=== PATIENT | male | born 1970 | race Caucasian/White ===

== ENCOUNTER → 2018-10-22 | Day surgery (SDC) | payer BC ==
[~2018-10-22] MED LIST: Lactated Ringers 1,000 ML IV SCH; Propofol 200 MG/20 ML SDV IV ONE
--- NOTE | 2018-10-22 15:06 | OR ---
DATE OF OPERATION: 10/22/2018 PREOPERATIVE DIAGNOSIS: 1. SCREENING COLONOSCOPY. 2. CHRONIC GASTROESOPHAGEAL REFLUX DISEASE WITH DYSPHAGIA. POSTOPERATIVE DIAGNOSIS: 1. SCREENING COLONOSCOPY. 2. CHRONIC GASTROESOPHAGEAL REFLUX DISEASE WITH DYSPHAGIA. SURGEON: Barry Greene MD PROCEDURE: 1. FULL-LENGTH EGD WITH BIOPSIES X3, BRYSON. 2. FULL-LENGTH COLONOSCOPY WITH SNARE POLYPECTOMY X3. 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 COMPLICATIONS: None. SPECIMEN: 1. Antral biopsy x2. 2. Antral BRYSON. 3. Distal esophageal biopsy x1. 4. Villous adenomas x3, left colon. FINDINGS: 1. Full-length EGD. 2. Antral gastritis, chronic. 3. Mild hiatal hernia with spontaneous GERD with potential Drummond's esophagus. 4. Full-length colonoscopy. 5. Villous adenomas x3, left colon. RECOMMENDATIONS: All 3 of these villous polyps were greater than half a cm. Recommend a followup colonoscopy in the next 2 years. The patient could consider a consultation with Dr. Goins for his persistent reflux associated with his hiatal hernia. INDICATIONS: The patient has persistent chronic reflux, but is not on medical therapy. He has never had a prior EGD. Sebastian Cha sent him for that and a screening colonoscopy. DESCRIPTION OF PROCEDURE: The patient was prepped and draped, placed in the left lateral decubitus position. A lubricated Olympus gastroscope was inserted over bit and advanced to cricopharyngeus area and easily intubated into the esophagus. Esophageal lining was benign most of its course. At its most distal portion, the patient had a [id number] sized hiatal hernia with spontaneous GERD. There were 2 or 3 areas that might represent short-segment Drummond's. We did a biopsy of those. The scope was then advanced into the stomach, through the pylorus, into the second portion of duodenum. This and the duodenal bulb were benign. The scope was brought back into the stomach and retroflexed. The upper fundus and cardia were benign. Upon straightening, the rest of the fundus was unremarkable. The patient's antrum has changes of chronic gastritis without any acute ulcerations or erosions. Two biopsies were taken along with a CLOtest. The scope was then brought back up to the distal esophagus, reevaluated. Resolution of bleeding was spontaneous. There were no signs of any stricturing or ulceration. The scope was removed and patient was then lied flat. The lubricated Olympus colonoscope was then inserted and easily advanced to the cecum. Direct visualization of the ileocecal valve and appendiceal orifice were accomplished. The bowel prep was fine. Upon withdrawal of the scope, the patient's cecum, ascending and transverse colon were completely benign. Just past the splenic flexure, the patient had a flat villous lesion, approximately three-fourth of a cm in size and was removed with a snare and suctioned into polyp trap. 1. We had to remove it in 2 separate pieces. Just in the distal descending colon, the patient had a 2nd villous adenoma approximately half a cm in size, removed it in its entirety and suctioned into polyp trap. 2. In the mid sigmoid colon, the patient had a 3rd villous adenoma, again approximately half a cm in size, removed with a snare and suctioned into polyp trap. 3. The rest of the sigmoid and rectosigmoid junction were benign. The rectal vault was unremarkable. Retroflexion of scope in the rectum showed no perianal lesions. Air was then suctioned, scope removed without complication. SCARLET/ADRIANA /[id number]
== END ==
LOC: CC.SDS 11:20
PROVIDERS: ATTEND Family Medicine
DX: Z12.11 Encounter for screening for malignant neoplasm of colon (principal); D12.4 Benign neoplasm of descending colon; D12.5 Benign neoplasm of sigmoid colon; D12.3 Benign neoplasm of transverse colon; K22.70 Barrett's esophagus without dysplasia; K29.50 Unspecified chronic gastritis without bleeding; K44.9 Diaphragmatic hernia without obstruction or gangrene; K21.9 Gastro-esophageal reflux disease without esophagitis; E78.5 Hyperlipidemia, unspecified; J45.909 Unspecified asthma, uncomplicated; F17.220 Nicotine dependence, chewing tobacco, uncomplicated; E66.9 Obesity, unspecified; Z68.35 Body mass index [BMI] 35.0-35.9, adult; Z79.82 Long term (current) use of aspirin; Z79.899 Other long term (current) drug therapy
CPT/HCPCS: 43239; 45380; 45385; 87081; J2704; J7120

== ENCOUNTER 2022-05-12 10:59 | Observation (INO) | payer OTHER ==
[2022-05-12 11:34] LABS: CHLORIDE,CL 90 mEq/L (98-106); SODIUM,NA 129 mEq/L (136-145)
[2022-05-12 11:53] LABS: ESTIMATED GFR 66 mL/min (>=60)
[2022-05-12] MEDS ORDERED: Morphine 2 MG/ML SYRINGE IVPUSH PRN (12:31)
[2022-05-12] MEDS ORDERED: Albuterol 8 GM Inhaler INH SCH (12:45)
[2022-05-12] MEDS: Sodium Chloride 0.9% 1,000 ML IV SCH ×2 (13:00→20:55)
[2022-05-12] MEDS: Ondansetron 4 MG/2 ML SDV IV PRN (13:17)
[2022-05-12] MEDS: Pantoprazole 40 MG Vial IVPUSH SCH (13:25)
[2022-05-12] MEDS: HYDROmorphone 1 MG/ML Syringe IVPUSH PRN ×2 (14:14→20:42)
[2022-05-12] MEDS ORDERED: Non-Formulary Medication 1 Each (Budesonide/Formoterol 6 GM Inhaler) INH SCH (20:00)
[2022-05-13] MEDS: Sodium Chloride 0.9% 1,000 ML IV SCH ×3 (05:00→21:20)
[2022-05-13] MEDS: Pantoprazole 40 MG Vial IVPUSH SCH ×2 (05:04→19:40)
[2022-05-13] MEDS ORDERED: Non-Formulary Medication 1 Each (Fluticasone/Vilanterol 1 EACH Blst.W.Dev) INH SCH (08:00)
[2022-05-13] MEDS: Ondansetron 4 MG/2 ML SDV IV PRN (08:39)
[2022-05-13] MEDS: HYDROmorphone 1 MG/ML Syringe IVPUSH PRN ×2 (08:39→19:51)
[2022-05-13] MEDS ORDERED: Iopamidol 755 Mg/ML 100 ML Bottle IVPUSH ONE (10:01)
[2022-05-14] MEDS: Sodium Chloride 0.9% 1,000 ML IV SCH (05:17)
[2022-05-14] MEDS: Pantoprazole 40 MG Vial IVPUSH SCH (07:44)
== END 2022-05-14 10:05 | disposition home or self-care (01) ==
LOC: CC.FCMC 10:59 → CC.MS 10:59 → UNDOADMOB 12:12 → CC.MS 12:31
PROVIDERS: ADMIT Physician Assistant Medical; ATTEND Nurse Practitioner Family
DX: K85.20 Alcohol induced acute pancreatitis without necrosis or infection (principal); R74.8 Abnormal levels of other serum enzymes; R79.89 Other specified abnormal findings of blood chemistry; Z79.899 Other long term (current) drug therapy; Z20.822 Contact with and (suspected) exposure to COVID-19
CPT/HCPCS: 36415; 74177; 76705; 80053; 81001; 82150; 83690; 85025; 86140; 96361; 96374; 96375; 96376; 99217; 99220; 99225; C9113; G0378; J1170; J2270; J2405; J7030; Q9967; U0002

== ENCOUNTER 2024-10-12 12:35 | Day surgery (SDC) | payer BC ==
[2024-10-12] MEDS: Lactated Ringers 1,000 ML IV SCH (12:59)
[2024-10-12] MEDS ORDERED: Lidocaine 2% 20 ML MDV ONE (13:00)
[2024-10-12] MEDS ORDERED: fentaNYL 50 MCG/ML SDV ONE ×2 (13:00)
[2024-10-12] MEDS ORDERED: Ketamine 200 MG/20 ML MDV ONE (13:00)
[2024-10-12] MEDS ORDERED: Propofol 200 MG/20 ML SDV ONE ×2 (13:00)
[2024-10-12] MEDS ORDERED: Midazolam 1 MG/ML 2 ML SDV ONE (13:00)
== END 2024-10-12 14:35 | disposition home or self-care (01) ==
LOC: CC.SDS 12:35
PROVIDERS: ATTEND Family Medicine
DX: D12.5 Benign neoplasm of sigmoid colon (principal); K22.70 Barrett's esophagus without dysplasia; K21.00 Gastro-esophageal reflux disease with esophagitis, without bleeding; D50.9 Iron deficiency anemia, unspecified; J45.909 Unspecified asthma, uncomplicated; E78.5 Hyperlipidemia, unspecified; Z79.899 Other long term (current) drug therapy
CPT/HCPCS: 00813; 87081; J2250; J2704; J3010; J3490; J7120

== ENCOUNTER 2025-01-17 08:47 | Inpatient (IN) | payer SELFPAY ==
[2025-01-17 09:20] LABS: BASOPHILS ABSOLUTE AUTO 0.07 10^3/uL (0.00-0.50); BASOPHILS PERCENT AUTO 0.9 % (0-1); EOSINOPHILS ABSOLUTE AUTO 0.22 10^3/uL (0.00-1.50); EOSINOPHILS PERCENT AUTO 2.7 % (0-6); HEMATOCRIT 37.5 % (42.0-52.0); IMMATURE GRAN ABSOLUTE AUTO 0.01 10^3/uL (0.00-0.49); IMMATURE GRAN PERCENT AUTO 0.1 % (0.0-4.9); LYMPHOCYTES ABSOLUTE AUTO 1.03 10^3/uL (0.60-5.00); LYMPHOCYTES PERCENT AUTO 12.9 % (24-44); MEAN CORPUSCULAR HEMOGLOBIN 31.6 pg (27.0-32.0); MEAN CORPUSCULAR HGB CONC 34.7 g/dL (32.0-36.0); MONOCYTES ABSOLUTE AUTO 0.67 10^3/uL (0.00-1.50); MONOCYTES PERCENT AUTO 8.4 % (0-10); NEUTROPHILS ABSOLUTE AUTO 6.01 x10^3/uL (1.80-8.00); PLATELET COUNT,PLT 117 10^3/uL (150-400); RED BLOOD CELL COUNT 4.12 x10^6/uL (4.50-6.00)
[2025-01-17 09:38] LABS: ALBUMIN 3.4 g/dL (3.4-5.0); CALCIUM 8.6 mg/dL (8.4-10.1); CREATININE 1.1 mg/dL (0.7-1.3); EST CRCL DRUG DOSING (CG) 82.3 mL/min; MAGNESIUM 1.6 mg/dL (1.8-2.4); PROTEIN TOTAL,TP 6.6 g/dL (6.4-8.2)
[2025-01-17] MEDS: Ondansetron 4 MG/2 ML SDV IVPUSH STA (09:39)
[2025-01-17] MEDS: Sodium Chloride 0.9% 1,000 ML IV ONE (09:39)
[2025-01-17] MEDS: HYDROmorphone 1 MG/ML Syringe IVPUSH ONE (09:39)
[2025-01-17] MEDS: Iopamidol 755 Mg/ML 100 ML Bottle IVPUSH ONE (10:19)
[2025-01-17] MEDS ORDERED: Ondansetron 4 MG/2 ML SDV IV PRN (11:22)
[2025-01-17] MEDS ORDERED: Ondansetron 4 MG Tab.DIS PO PRN (11:22)
[2025-01-17] MEDS: Sodium Chloride 0.9% 1,000 ML IV SCH (11:35)
[2025-01-17] MEDS: HYDROmorphone 0.5 MG/0.5 ML Syringe IVPUSH PRN (14:34)
[2025-01-18 07:38] LABS: BASOPHILS ABSOLUTE AUTO 0.04 10^3/uL (0.00-0.50); BASOPHILS PERCENT AUTO 0.7 % (0-1); EOSINOPHILS ABSOLUTE AUTO 0.58 10^3/uL (0.00-1.50); EOSINOPHILS PERCENT AUTO 10.7 % (0-6); HEMATOCRIT 31.1 % (42.0-52.0); HEMOGLOBIN 10.3 g/dL (14.0-18.0); IMMATURE GRAN ABSOLUTE AUTO 0.01 10^3/uL (0.00-0.49); IMMATURE GRAN PERCENT AUTO 0.2 % (0.0-4.9); LYMPHOCYTES ABSOLUTE AUTO 1.86 10^3/uL (0.60-5.00); LYMPHOCYTES PERCENT AUTO 34.4 % (24-44); MEAN CORPUSCULAR HEMOGLOBIN 31.1 pg (27.0-32.0); MEAN CORPUSCULAR HGB CONC 33.1 g/dL (32.0-36.0); MONOCYTES ABSOLUTE AUTO 0.42 10^3/uL (0.00-1.50); MONOCYTES PERCENT AUTO 7.8 % (0-10); NEUTROPHILS PERCENT AUTO 46.2 % (41-71); PLATELET COUNT,PLT 96 10^3/uL (150-400); RED BLOOD CELL COUNT 3.31 x10^6/uL (4.50-6.00); WHITE BLOOD CELL COUNT,WBC 5.4 10^3/uL (4.0-11.0)
[2025-01-18 08:09] LABS: ALBUMIN 2.7 g/dL (3.4-5.0); BILIRUBIN TOTAL 0.6 mg/dL (0.0-1.0); CREATININE 0.9 mg/dL (0.7-1.3); EST CRCL DRUG DOSING (CG) 100.59 mL/min; MAGNESIUM 1.7 mg/dL (1.8-2.4); POTASSIUM,K 3.4 mEq/L (3.5-5.0); PROTEIN TOTAL,TP 5.3 g/dL (6.4-8.2)
[2025-01-18] MEDS: Pantoprazole 40 MG Tab.CR PO SCH (08:36)
== END 2025-01-18 12:00 | disposition home or self-care (01) | DRG 440 ==
LOC: CC.ED 08:47 → UNDOADMIN 10:50 → CC.MS 10:50 → MERGE 11:08 → CC.MS 11:08
PROVIDERS: ADMIT Nurse Practitioner; ATTEND Nurse Practitioner
DX: K85.90 Acute pancreatitis without necrosis or infection, unspecified (principal); F10.90 Alcohol use, unspecified, uncomplicated; F17.210 Nicotine dependence, cigarettes, uncomplicated; Z79.51 Long term (current) use of inhaled steroids; Z79.899 Other long term (current) drug therapy
CPT/HCPCS: 36415; 74177; 80053; 83690; 83735; 85025; 96361; 96374; 96375; 99223; 99238; 99285-25; A9270-GY; J1171; J2405; J7030; Q9967